=== PATIENT | male | born 1995 | race Caucasian/White ===

== ENCOUNTER 2018-03-26 10:29 | Outpatient (CLI) | payer OTHER ==
--- NOTE | 2018-03-26 13:13 | RAD ---
FIVE VIEW LUMBAR SPINE: Date: 03-26-18 Comparison: None. History: Low back pain. FINDINGS: Frontal radiograph demonstrates five lumbar vertebral bodies with intact pedicles on frontal imaging. Lateral imaging demonstrates normal vertebral body height and alignment with no evidence for anterol isthesis or retrolisthesis on flexion, extension, or neutral imaging. IMPRESSION: Unremarkable five view examination of the lumbar spine. POS: TYLER
--- NOTE | 2018-03-26 13:59 | MRI ---
MRI LUMBAR SPINE WITHOUT CONTRAST: 03/26/2018 HISTORY: Localized low back pain for 1.5 years. TECHNIQUE: Multiplanar, multisequence MR imaging of the lumbar spine provided without contrast. FINDINGS: There is no anterolisthesis or retrolisthesis noted within the lumbar spine. On the basis of five nora mbar type vertebral bodies, the conus medullaris terminates at the L1 level. T12-L1: Intervertebral disk height and signal intensity within normal limits with no central canal o r neural foraminal stenosis. L1-L2: Intervertebral disk height and signal intensity within normal limits with no significant cent ral canal or neural foraminal stenosis. L2-L3: Intervertebral disk height and signal intensity within normal limits with no significant cent ral canal or neural foraminal stenosis. L3-L4: Intervertebral disk height and signal intensity within normal limits with no significant cent ral canal or neural foraminal stenosis. L4-L5: There is disk desiccation and mild disk space narrowing with mild disk bulge. There is a rig ht paracentral annular tear with an associated small disk protrusion. This causes no significant maggie tral canal or neural foraminal stenosis. L5-S1: There is a small central disk protrusion with no associated central canal stenosis. No signi ficant neural foraminal stenosis noted on either side. The imaged retroperitoneal structures appear grossly unremarkable. Incidental note is made of a retr oaortic left renal vein. 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 No significant central canal or neural forami nal stenosis is noted. POS: TYLER
== END 2018-03-26 10:30 | disposition home or self-care (01) ==
LOC: MRI 10:29
DX: M54.5 Low back pain (principal); M51.37 Other intervertebral disc degeneration, lumbosacral region; M51.36 Other intervertebral disc degeneration, lumbar region
CPT/HCPCS: 72120; 72148